=== PATIENT | female | born 1960 | race Caucasian/White ===

== ENCOUNTER 2018-06-17 14:28 | Emergency (ER) | payer OTHER ==
[~2018-06-17] VITALS: Ht 157.5 cm; Wt 61.7 kg
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
[2018-06-17] MEDS ORDERED: IBUPROFEN800 M1 PO (17:21)
[2018-06-17] MEDS ORDERED: CYCLOBENZAPRINE10 M1 PO (17:21)
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
[2018-06-17 17:33] VITALS: BP 131/78
== END 2018-06-17 17:33 ==
LOC: ERH 14:28
DX: M54.2 Cervicalgia (principal)